=== PATIENT | male | born 1965 | race Caucasian/White ===

== ENCOUNTER → 2024-12-26 09:14 | Outpatient (CLI) | payer OTHER, SELFPAY ==
--- NOTE | 2024-12-26 09:18 | DI.RAD.S_ITS ---
PROCEDURE: XR KNEE LT 3V INDICATIONS: left hip pain, arthritis TECHNIQUE: 3 views of the knee were acquired. COMPARISON: None. FINDINGS: Bones: There are no osseous abnormalities. Joints: Moderate medial tibial femoral and patellofemoral degeneration appreciated. Small effusion noted. Soft tissues: Normal IMPRESSION: Moderate degeneration. . Dictated by: Omid Sykes M.D. on 12/27/2024 at 10:13 Approved by: Omid Sykes M.D. on 12/27/2024 at 10:13
--- NOTE | 2024-12-26 09:18 | DI.RAD.S_ITS ---
PROCEDURE: XR HIP W PEL IF DONE LT 2V INDICATIONS: left hip pain, arthritis TECHNIQUE: AP pelvis with lateral view(s) of the left hip(s). COMPARISON: None. FINDINGS: Bones: There are no osseous abnormalities. SI and hip joints: Severe left hip degeneration appreciated. A 2.9 cm radiolucent lesion in these superior and mid left femoral head is almost certainly a degenerative cyst. Moderate right hip degeneration also noted. Both SI joints show mild degeneration. Moderate L4-5 and L5-S1 degenerative disc and facet disease Soft tissues: No soft tissue swelling, calcification or mass. IMPRESSION: Severe left hip degeneration. Moderate right degeneration Dictated by: Omid Sykes M.D. on 12/27/2024 at 10:11 Approved by: Omid Sykes M.D. on 12/27/2024 at 10:12
[2024-12-26 10:31] LABS: Protein (Total) Urine Random 16 mg/dL (0-12); Protein Creatinine Ratio Urine 0.17 GRAM/24H
[2024-12-26 10:32] LABS: Alanine Aminotransferase 69 IU/L (<50); Albumin 4.2 g/dL (3.5-5.0); Albumin Globulin Ratio 1.6 (1.0-2.8); Alkaline Phosphatase 80 U/L (38-126); Blood Urea Nitrogen 18 mg/dL (9-20); Calcium 9.6 mg/dL (8.4-10.2); Carbon Dioxide 28 mmol/L (22-32); Chloride 103 mmol/L (98-107); Cholesterol 217 mg/dL (140-199); Estimated Glomerular Filt Rate > 60 mL/min (>60); Globulin 2.7 g/dL (1.7-4.1); Glucose 98 mg/dL (70-99); HDL Cholesterol 44 mg/dL (40-60); HEMOLYSIS < 15 (0-50); Potassium 4.2 mmol/L (3.4-5.1); Sodium 136 mmol/L (137-145); Total Protein 6.9 g/dL (6.3-8.2); Triglycerides 211 mg/dL (35-150)
[2024-12-28 04:10] LABS: CRP, High Sensitivity 1.03 mg/L (0.00-3.00)
== END ==
PROVIDERS: PCP Family Medicine; Referring Provider Family Medicine; Visit Provider Family Medicine
DX: Z12.5 Encounter for screening for malignant neoplasm of prostate (principal); M25.562 Pain in left knee; M19.90 Unspecified osteoarthritis, unspecified site; M25.552 Pain in left hip; I25.10 Atherosclerotic heart disease of native coronary artery without angina pectoris; E78.5 Hyperlipidemia, unspecified; I10 Essential (primary) hypertension
CPT/HCPCS: 36415; 73502; 73562; 80053; 80061; 82570; 84156; 86140; G0103

== ENCOUNTER 2025-01-14 00:11 | Emergency (ER) | payer OTHER, SELFPAY ==
[2025-01-14 00:57] VITALS: BP 190/100; PULSE 80; RESP 16; TEMP 37.1; O2SAT 96; BMI 31.5
[2025-01-14 01:36] LABS: Alanine Aminotransferase 69 IU/L (<50); Albumin 4.6 g/dL (3.5-5.0); Albumin Globulin Ratio 1.5 (1.0-2.8); Alkaline Phosphatase 84 U/L (38-126); Blood Urea Nitrogen 16 mg/dL (9-20); Calcium 9.8 mg/dL (8.4-10.2); Carbon Dioxide 27 mmol/L (22-32); Chloride 100 mmol/L (98-107); Estimated Glomerular Filt Rate > 60 mL/min (>60); Globulin 3.1 g/dL (1.7-4.1); Glucose 127 mg/dL (70-99); HEMOLYSIS < 15 (0-50); Lipase 62 U/L (23-300); Potassium 4.3 mmol/L (3.4-5.1); Sodium 135 mmol/L (137-145); Total Protein 7.7 g/dL (6.3-8.2)
[2025-01-14 01:50] LABS: Add Manual Diff / Slide Review NO; Hematocrit 46.9 % (41-53); Hemoglobin 16.3 g/dL (13.5-17.5); Lymphocytes Absolute Auto 1100 /uL (1100-4500); Mean Corpuscular HGB Conc 34.8 % (30-36); Mean Corpuscular Hemoglobin 30.5 PG (26-34); Mean Corpuscular Volume 87.7 fL (80-100); Platelet Count 148 X10^3/uL (150-400)
--- NOTE | 2025-01-14 02:57 | DI.CT.S_ITS ---
PROCEDURE: CT ABDOMEN PELVIS W CON INDICATIONS: Abdominal pain TECHNIQUE: After the administration of intravenous contrast, axial sections acquired from the lung bases to the pubic symphysis. Coronal and sagittal reformats were performed. For radiation dose reduction, the following was used: automated exposure control, adjustment of mA and/or kV according to patient size. COMPARISON: None. FINDINGS: Image quality: Diagnostic. Lower Chest: No significant findings. ABDOMEN: Liver: No solid mass. Hepatic steatosis Gallbladder: Small gallstones noted in the gallbladder neck. Otherwise, no CT evidence for acute cholecystitis. Biliary ducts: No biliary dilation. Pancreas: Homogeneous enhancement without focal lesions or pancreatic ductal dilatation. No peripancreatic inflammation or organized fluid collections. Spleen: Size is within normal limits. Adrenal Glands: No adrenal nodules. Kidneys and Ureters: No hydronephrosis. No solid mass. No complex renal cystic lesion which requires follow up. Stomach and Bowel: Normal colonic caliber, without significant wall thickening. Scattered colonic diverticula without acute inflammation. No evidence for small bowel obstruction or associated inflammatory changes. The appendix is not definitively visualized. However, no secondary findings of acute inflammation are noted in the right lower quadrant. Multiple fluid-filled loops of small bowel without dilatation or significant wall thickening. Peritoneum: No abnormal intraperitoneal fluid. No free air. Ventral Wall: There is a prominent fat containing ventral abdominal hernia which is somewhat multi lobulated in appearance. This measures approximately 8.6 x 4.9 cm in axial cross-sectional dimension. Wall defect measures approximately 1.4 cm. No significant adjacent inflammatory stranding. Abdominal Nodes: No retroperitoneal or mesenteric adenopathy by size criteria. Vessels: Aorta and inferior vena cava are normal in size. PELVIS: Pelvic Organs: Mild prostatomegaly.. Bladder: No bladder wall thickening, accounting for underdistention. Pelvic Nodes: No enlarged lymph nodes. Miscellaneous: No inguinal hernias are seen. Bones: No aggressive osseous abnormality. No acute vertebral body compression fractures. Multilevel spondylitic changes throughout the imaged spine. No suspicious osseous lesions. Severe left and moderate right bilateral hip degenerative changes. IMPRESSION: 1. Prominent fat containing ventral hernia without significant inflammatory changes. Recommend clinical correlation to exclude focal pain in this region. 2. Colonic diverticulosis without acute diverticulitis. 3. Cholelithiasis without CT evidence for acute cholecystitis. 4. Hepatic steatosis. 5. Multiple fluid-filled loops of nondistended, noninflamed appearing small bowel is nonspecific. However, enteritis either infectious or inflammatory in etiology may have a similar appearance. 6. Other chronic/non-acute findings as above. No significant discrepancy with the overnight stocker radiology preliminary report. Dictated by: Reno Gunn M.D. on 01/14/2025 at 7:42 Approved by: Reno Gunn M.D. on 01/14/2025 at 7:50
--- NOTE | 2025-01-14 04:37 | ED.ABDPAIN ---
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 Central supraumbilical periumbilical discomfort since 01/13/2025, worsening today. No local trauma or new activities. [place] nauseated. No black or red stools. Related Data Home Medications ?Medication ?Instructions ?Recorded ?Confirmed aspirin 81 mg chewable tablet 81 mg PO DAILY 07/07/22 01/14/25 cetirizine 10 mg tablet (Allergy 10 mg PO DAILY PRN allergy symptoms 12/26/24 01/14/25 Relief (cetirizine)) multivitamin (Daily Multi-Vitamin 1 tab PO DAILY 12/26/24 01/14/25 tablet) naproxen sodium 220 mg tablet 440 mg PO BID PRN pain 12/26/24 01/14/25 (Aleve) Previous Rx's ?Medication ?Instructions ?Recorded lisinopril 20 mg tablet 20 mg PO DAILY #90 tabs 12/26/24 metoprolol succinate 25 mg 25 mg PO DAILY #90 tabs 12/26/24 tablet,extended release 24 hr sildenafil 25 mg tablet 25 mg PO DAILY PRN erectile 12/26/24 dysfunction #30 tabs Allergies Allergy/AdvReac Type Severity Reaction Status Date / Time Penicillins Allergy Severe Anaphylaxis Verified 01/14/25 00:56 shellfish derived Allergy Severe Anaphylaxis Verified 01/14/25 00:56 Patient History Medical History (Updated 01/14/25 @ 05:00 by Jm Mojica MD) Primary osteoarthritis of left hip Social History Smoking Status: Never smoker Smoking Status: Never smoker Alcohol type: wine Exam Narrative Exam Narrative: GENERAL: Well-developed patient, in mild distress. HEAD: Atraumatic. Normocephalic. EYES: Pupils equal round and reactive. Extraocular motions intact. No scleral icterus. No injection or drainage. ENT: Nose without bleeding, purulent drainage. Throat without erythema, tonsillar hypertrophy or exudate. Airway patent. NECK: Trachea midline. Non tender CARDIOVASCULAR: Regular rate and rhythm without murmurs, gallops, or rubs. RESPIRATORY: Clear to auscultation. Breath sounds equal bilaterally. No wheezes, rales, or rhonchi. GASTROINTESTINAL: Abdomen with central supraumbilical hernia, palpable and with slow cupping seems to be at least partially reducible, apparently a lot less tender than before. EXTREMITIES: No edema or joint tenderness. BACK: Nontender without deformity or crepitance. No flank tenderness. NEURO: AOx3. Motor functions grossly nonfocal. SKIN: No rash or erythema of visible areas Initial Vital Signs Initial Vital Signs: Vital Signs Temperature 98.7 F 01/14/25 00:57 Pulse Rate 80 01/14/25 00:57 Respiratory Rate 16 01/14/25 00:57 Blood Pressure 190/100 H 01/14/25 00:57 Pulse Oximetry 96 01/14/25 00:57 Oxygen Delivery Method Room Air 01/14/25 00:57 Course Orders Ordered: Discontinued Medications Ondansetron HCl (Ondansetron 4 Mg/2 Ml Inj) 4 mg IV NOW PRN PRN Reason: Nausea And Vomiting Ondansetron HCl (Ondansetron 4 Mg Odt) 4 mg PO NOW PRN PRN Reason: Nausea And Vomiting Vital Signs Vital signs: Vital Signs - 8 hr 01/14/25 00:57 Temperature 98.7 F Pulse Rate 80 Respiratory Rate 16 Blood Pressure 190/100 H Pulse Oximetry 96 Oxygen Delivery Method Room Air MDM - Abdominal Pain Lab Data Attestation: I reviewed the patient's lab results. Lab results narrative: White blood cell count 21094, hemoglobin 16.3, platelets 148,000. Glucose 127. BUN 16 with creatinine 0.96. Serum CO2 27 normal, potassium 4.3 normal, sodium 135 slight low. ALT slight elevation, other liver functions normal. Lipase 62. Urine dip negative. 01/14/25 01:08 01/14/25 01:08 Labs: Lab Results 01/14/25 Range/Units 01:08 WBC 11.7 H (4.5-11.0) X10^3/uL RBC 5.35 (4.5-5.9) X10^6/uL Hgb 16.3 (13.5-17.5) g/dL Hct 46.9 (41-53) % MCV 87.7 (80-100) fL MCH 30.5 (26-34) PG MCHC 34.8 (30-36) % RDW 14.5 (11.6-14.8) % Plt Count 148 L (150-400) X10^3/uL Neut % (Auto) 80.1 H (50-75) % Lymph % (Auto) 9.8 L (25-40) % [place] % (Auto) 7.1 (3-14) % Eos % (Auto) 2.5 (2-4) % Baso % (Auto) 0.5 (0-2) % Neut # (Auto) 9400 H (8575-1327) /uL Lymph # (Auto) 1100 (0357-6026) /uL [place] # (Auto) 800 (0-900) /uL Eos # (Auto) 300 (0-450) /uL Baso # (Auto) 100 (0-100) /uL Sodium 135 L (137-145) mmol/L Potassium 4.3 (3.4-5.1) mmol/L Chloride 100 (98-107) mmol/L Carbon Dioxide 27 (22-32) mmol/L BUN 16 (9-20) mg/dL Creatinine 0.96 (0.66-1.25) mg/dL Estimated GFR > 60 (>60) mL/min BUN/Creatinine Ratio 16.7 (6-22) Glucose 127 H (70-99) mg/dL Calcium 9.8 (8.4-10.2) mg/dL Total Bilirubin 1.2 (0.2-1.3) mg/dL AST 48 (17-59) IU/L ALT 69 H (<50) IU/L Alkaline Phosphatase 84 (38-126) U/L Total Protein 7.7 (6.3-8.2) g/dL Albumin 4.6 (3.5-5.0) g/dL Globulin 3.1 (1.7-4.1) g/dL Albumin/Globulin Ratio 1.5 (1.0-2.8) Lipase 62 (23-300) U/L Point of care testing: Urine Dip Bedside Urine Glucose Negative Bedside Urine Bilirubin - Negative Bedside Urine Ketone - Negative Urine Specific [place] 1.005 Bedside Urine Occult Blood - Negative Bedside Urine pH 7.0 Bedside Urine Protein - Negative Bedside Urine Urobilinogen - Negative Bedside Urine Nitrite - Negative Bedside Urine Leukocytes - Negative Esterase MDM Narrative Medical decision making narrative: 59-year-old male with history of 2018 umbilical hernia mesh repair with subsequent bowel knick perforation, partial bowel resection, mesh removal surgery, persisting supra/umbilical ventral hernia. Worsen anterior hernia symptoms yesterday. Unable to reduce the area. Afebrile, sirs screen negative. DX consider bowel obstruction, incarceration, strangulation, perforation, other. Keep NPO. Lab data: White blood cell count 59614, hemoglobin 16.3, platelets 148,000. Glucose 127. BUN 16 with creatinine 0.96. Serum CO2 27 normal, potassium 4.3 normal, sodium 135 slight low. ALT slight elevation, other liver functions normal. Lipase 62. Urine dip negative. CT abdomen and pelvis with IV contrast. Impressions: ?No evidence of colitis diverticulitis bowel obstruction or obstructive uropathy. Appendix is not seen. Ventral hernia containing fat.? See tele radiology report Symptoms seemed to get better without specific treatment once he was in the waiting room and brought back to examination room. Seems to have partial reducible but persistent supraumbilical mass. Fat hernia noted above. Patient traveling on vacation to [place] at [place]. We will give copy of CD onto disc if needed in close follow up, and copy of tele radiology reading report. Improved without specific treatment, discharged home. Provided contact information for [facility] for consultation, regarding future vental/umbilical hernia revision, as he would rather not see [facility] surgeon any further. Discharged home with family. Return precautions discussed. Discharge Plan Departure Patient Disposition: Home Clinical Impression: Abdominal pain, Umbilical hernia Instructions: DI for Abdominal Pain-Adult Activity Restrictions/Additional Instructions: History of ventral hernia repair complicated by nicked bowel, partial bowel resection and mesh removal at outside facility 2018. Persisting known ventral hernia. Increased pain yesterday. Improved symptoms during ED waiting room course, pending CT imaging. CT abdomen pelvis showed no bowel obstruction pattern but did show hernia of fat material supraumbilical hernia noted. Symptoms seemed to be improved, there is some partial improvement with steady pressure cupping. Copy of CT report and images saved to disc as your planning to leave for vacation [facility]. Save reports and images in case she need to present to area emergency department if symptoms should recur or worsen. Consider elective ventral hernia repair surgical options with [facility] in [place] on return for your vacation. Return to nearest emergency department for any change worsening symptoms or any concerns prior. Prescriptions: No Action aspirin 81 mg tablet,chewable 81 mg PO DAILY multivitamin [Daily Multi-Vitamin] Tablet 1 tab PO DAILY cetirizine [Allergy Relief (cetirizine)] 10 mg tablet 10 mg PO DAILY PRN (Reason: allergy symptoms) naproxen sodium [Aleve] 220 mg tablet 440 mg PO BID PRN (Reason: pain) lisinopril 20 mg tablet 20 mg PO DAILY Qty: 90 1RF metoprolol succinate 25 mg tablet extended release 24 hr 25 mg PO DAILY Qty: 90 1RF sildenafil 25 mg tablet 25 mg PO DAILY PRN (Reason: erectile dysfunction) Qty: 30 5RF Rx Instructions: administer 30 minutes to 4 hours before activity Referrals: Chung Fuller MD [Physician, General Surgery] Adriana Rosales DO [Primary Care Provider, Medical] Stand Alone Forms: Patient Portal/API
[2025-01-14 05:21] VITALS: BP 153/85; PULSE 65; RESP 14; O2SAT 99
== END 2025-01-14 05:23 | disposition home or self-care (01) ==
PROVIDERS: Emergency Provider Emergency Medicine; PCP Family Medicine
DX: K42.9 Umbilical hernia without obstruction or gangrene (principal); R10.33 Periumbilical pain; R11.0 Nausea
CPT/HCPCS: 36415; 74177; 80053; 81003; 83690; 85025; 99283; 99284; Q9967